=== PATIENT | male | born 1980 | race Caucasian/White ===

== ENCOUNTER → 2016-05-11 | Outpatient (CLI) | payer OTHER ==
[~2016-05-11] MED LIST: ADVAIR 250-501 EACH INH; IBUPROFEN800 MG PO; METHOCARBAMOL750 MG PO; NEXIUM 24HR22.3 MG PO; VITAMIN D350000 UNIT PO; ZOLOFT50 MG PO; ZYRTEC10 M2 PO
== END ==
LOC: US 05-06 09:30 → ECHO 05-06 11:00 → US 10:30
DX: R53.83 Other fatigue (principal); R06.02 Shortness of breath; R10.11 Right upper quadrant pain; R06.00 Dyspnea, unspecified
CPT/HCPCS: ECHO; 76700; 93306

== ENCOUNTER → 2016-05-12 | Outpatient (CLI) | payer OTHER | LOC: EXRD 15:33 | DX: R06.02 Shortness of breath (principal) | CPT/HCPCS: 71020 ==

== ENCOUNTER → 2016-06-06 | Outpatient (CLI) | payer OTHER | LOC: RT 15:47 | DX: R06.02 Shortness of breath (principal) | CPT/HCPCS: 94060; 94729 ==

== ENCOUNTER → 2016-07-08 | Outpatient (CLI) | payer OTHER | LOC: NM 06-17 14:30 | DX: R10.11 Right upper quadrant pain (principal); R93.2 Abnormal findings on diagnostic imaging of liver and biliary tract | CPT/HCPCS: 78227; A9537; J2805 ==

== ENCOUNTER → 2016-08-22 | Outpatient (CLI) | payer OTHER | LOC: EXRD 15:16 | DX: M54.2 Cervicalgia (principal); M54.6 Pain in thoracic spine; M54.5 Low back pain | CPT/HCPCS: 72050; 72070; 72100 ==

== ENCOUNTER → 2016-08-26 | Outpatient (CLI) | payer SELFPAY | LOC: KOH-I 08-25 10:30 | DX: Z04.3 Encounter for examination and observation following other accident (principal); R42 Dizziness and giddiness | CPT/HCPCS: 70450 ==